=== PATIENT | female | born 1975 | race African-American/Black ===

== ENCOUNTER 2020-09-02 11:05 | Emergency (ER) | payer BC ==
[~2020-09-02] VITALS: Ht 175.3 cm; Wt 72.0 kg
[2020-09-02] MEDS ORDERED: IV NORMAL SALINE 1000ML BAG 1,000 ML IV ONE (11:30)
--- NOTE | 2020-09-02 11:53 | PHYS DOC ---
Past Medical History Past Medical History: No Pertinent History Past Surgical History: Cholecystectomy Smoking Status: Current Every Day Smoker Alcohol Use: Occasionally General Adult EDM: Chief Complaint: Palpitations HPI: HPI: Patient is a 45 year old female who presents emergency department via EMS with complaints of feeling like her heart is racing. Patient reports that she has chest pressure and a tingling sensation in her right arm. She also complains of nausea. The patient reports that she went out with some friends last night and drank 2 drinks with vodka in it. She reports that while she was out with friends a friend of hers offered her an unknown pill but she did not take it. Patient states that she only slept 2 hours last night so she drank a energy drink this morning. Her chest pressure and palpitations began after she drank the energy drink. Patient states she usually drinks 4-16 ounce cans of Monster every day. She denies any vision changes, headache, weakness, shortness of breath, edema, cough, vomiting, diarrhea, abdominal pain, or rash. She denies any dizziness, diaphoresis, or recent fever. Patient states that she thinks someone slipped something in her drink. Review of Systems: Review of Systems: Constitutional: Denies fever or chills; see HPI. [] Eyes: Denies change in visual acuity. [] HENT: Denies nasal congestion or sore throat. [] Respiratory: Denies cough or shortness of breath. [] Cardiovascular: See HPI GI: Denies abdominal pain, vomiting, bloody stools or diarrhea; see HPI. [] : Denies dysuria. [] Musculoskeletal: Denies back pain or joint pain. [] Integument: Denies rash. [] Neurologic: Denies headache or focal weakness Psychiatric: Denies depression or anxiety. [] Complete ROS is negative unless otherwise stated in the HPI. Heart Score: Risk Factors: Risk Factors: DM, Current or recent (<one month) smoker, HTN, HLP, family history of CAD, obesity. Risk Scores: Score 0 - 3: 2.5% MACE over next 6 weeks - Discharge Home Score 4 - 6: 20.3% MACE over next 6 weeks - Admit for Clinical Observation Score 7 - 10: 72.7% MACE over next 6 weeks - Early Invasive Strategies Current Medications: Current Medications Medications (Trade) Dose Ordered Sig/Aimee Start Time Stop Time Status Last Admin Dose Admin Sodium Chloride 1,000 ml @ 1,000 mls/hr 1X ONCE 09/02/20 11:30 09/02/20 12:29 Allergies: Allergies: Allergies Coded Allergies Type Severity Reaction Last Updated Verified No Known Drug Allergies 09/02/20 No Physical Exam: PE: Constitutional: Well developed, well nourished, no acute distress, non-toxic appearance, appears anxious [] HENT: Normocephalic, atraumatic, bilateral external ears normal, oropharynx moist, no oral exudates, nose normal. [] Eyes: PERRLA, EOMI, conjunctiva normal, no discharge, pupils are 4 with brisk response bilaterally. [] Neck: Normal range of motion, no tenderness, supple, no stridor. [] Cardiovascular:Heart rate regular rhythm, no murmur [] Lungs & Thorax: Bilateral breath sounds clear to auscultation, respirations even and unlabored, no retractions, no respiratory distress [] Abdomen: soft, no tenderness Skin: Warm, dry, no erythema, no rash. [] Back: No tenderness Extremities: No cyanosis, ROM intact, no edema. [] Neurologic: Alert and oriented X 3, normal motor function, normal sensory function, no focal deficits noted. [] Psychologic: Affect normal, judgement normal, mood anxious, fidgety Current Patient Data: Vital Signs: Vital Signs Date Time Temp Pulse Resp B/P (MAP) Pulse Ox O2 Delivery O2 Flow Rate FiO2 09/02/20 11:06 97.6 94 20 136/85 (102) 99 Room Air 97.6 EKG: EK-sinus rhythm, rate 87, no STEMI, read by Dr. Chacon [] Radiology/Procedures: Radiology/Procedures: PROCEDURE: CHEST AP ONLY CHEST AP ONLY 09/02/2020 11:24 AM INDICATION: Chest pain COMPARISON: None available TECHNIQUE: Portable frontal view of the chest is provided. FINDINGS: The cardiomediastinal silhouette is within normal limits. Lungs are clear. There are no significant pleural effusions. There is no pulmonary vascular congestion. No pneumothorax. No suspicious osseous abnormality. IMPRESSION: There is no acute cardiopulmonary process. [] Course & Med Decision Making: Course & Med Decision Making Pertinent Labs and Imaging studies reviewed. (See chart for details) 45-year-old female presents emergency department with suspicion of being slipped an unknown substance and palpitations. Work-up included labs CBC was unremarkable, CMP was unremarkable, PT/INR within normal limits, d-dimer was negative; UA revealed 11-20 red blood cells however the patient was on her menstrual cycle currently. Urine drug screen was positiv e for amphetamines. Chest x-ray was unremarkable. EKG revealed no acute findings. The patient's vital signs are stable throughout emergency department stay. The patient was given 1 L of normal saline and 4 mg of Zofran in the emergency department. She reported feeling better after these medications. I advised the patient that her palpitations are likely due to the amphetamine as found in her urine drug screen and the use of Monster energy drinks. I discouraged the patient from drinking monster energy drinks. I encouraged her to increase fluids, go home and rest, follow-up with her primary care doctor in 1 to 2 days, return to the ER symptoms worsen. Patient verbalized an understanding of home care, medications, follow-up, and return to ED instructions and was in agreement with the plan of care. [] [place] Disclaimer: Dragon Disclaimer: This electronic medical record was generated, in whole or in part, using a voice recognition dictation system. Departure Departure Impression: Primary Impression: Palpitations Additional Impression: Use of energy drinks Disposition: 01 DC HOME SELF CARE/HOMELESS Condition: STABLE Patient Instructions: Palpitations, [id number] Additional Instructions: Increase clear fluids and rest today, I recommend that you stop drinking monster energy drinks. Follow-up with your primary care doctor in 1 to 2 days, return to the ER if symptoms worsen. RODDY ECHAVARRIA [employer] Sep 02, 2020 11:53
[2020-09-02 11:54] LABS: BASO # 0.1 x10^3/uL (0.0-0.2); BASO % 1 % (0-3); EOS % 0 % (0-3); HEMATOCRIT 39.1 % (36.0-47.0); HEMOGLOBIN 13.1 g/dL (12.0-15.5); LYMPH % 21 % (24-48); MEAN CORPUSCULAR HEMOGLOBIN 31 pg (25-35); MEAN CORPUSCULAR HGB CONC 34 g/dL (31-37); MEAN CORPUSCULAR VOLUME 93 fL (79-100); MONO # 0.7 x10^3/uL (0.0-1.1); MONO % 8 % (0-9); NEUT # 6.8 x10^3/uL (1.8-7.7); NEUT % 70 % (31-73); PLATELET COUNT 290 x10^3/uL (140-400); RED BLOOD COUNT 4.18 x10^6/uL (3.50-5.40); RED CELL DISTRIBUTION WIDTH 13.8 % (11.5-14.5); WHITE BLOOD COUNT 9.6 x10^3/uL (4.0-11.0)
--- NOTE | 2020-09-02 11:59 | RAD ---
CHEST AP ONLY 09/02/2020 11:24 AM INDICATION: Chest pain COMPARISON: None available TECHNIQUE: Portable frontal view of the chest is provided. FINDINGS: The cardiomediastinal silhouette is within normal limits. Lungs are clear. There are no significant pleural effusions. There is no pulmonary vascular congestion. No pneumothorax. No suspicious osseous abnormality. IMPRESSION: There is no acute cardiopulmonary process. Electronically signed by: Esmer Martinez MD (09/02/2020 11:56 AM) TATIANA
[2020-09-02] MEDS ORDERED: ONDANSETRON PF 4 MG/2 ML VIAL. IV ONE (12:00)
[2020-09-02 12:11] LABS: PARTIAL THROMBOPLASTIN TIME 28 SEC (24-38); PROTHROMBIN TIME PATIENT 12.9 SEC (11.7-14.0)
[2020-09-02 12:12] LABS: CALCIUM 8.7 mg/dL (8.5-10.1); CREATININE 0.8 mg/dL (0.6-1.0); GFR 77.2; POTASSIUM 3.5 mmol/L (3.5-5.1)
[2020-09-02 12:17] LABS: D-DIMER < 0.27 ug/mlFEU (0.00-0.50)
[2020-09-02 12:23] LABS: ALBUMIN 4.3 g/dL (3.4-5.0); ALBUMIN/GLOBULIN RATIO 1.3 (1.0-1.7); MAGNESIUM 2.1 mg/dL (1.8-2.4); TOTAL BILIRUBIN 0.6 mg/dL (0.2-1.0); TOTAL PROTEIN 7.7 g/dL (6.4-8.2)
[2020-09-02 13:09] VITALS: BP 165/75
[2020-09-02 13:51] LABS: BILIRUBIN,URINE NEGATIVE (NEG); CLARITY,URINE CLEAR; COLOR,URINE YELLOW; NITRITE,URINE NEGATIVE (NEG); PH,URINE 6.5 (<5.0-8.0); PROTEIN,URINE NEGATIVE (NEG-TRACE); UROBILINOGEN,URINE 0.2 mg/dL (0.2 mg/dL)
[2020-09-02 13:58] LABS: BARBITURATES NEG (NEG); BENZODIAZEPINES NEG (NEG); CANNABINOIDS NEG (NEG); COCAINE NEG (NEG); METHADONE NEG (NEG); OPIATES NEG (NEG); PHENCYCLIDINE NEG (NEG)
[2020-09-02 14:01] LABS: BACTERIA,URINE 0 /HPF (0-FEW)
[2020-09-02 14:04] LABS: AMPHETAMINE/METHAMPHETAMINE POS (NEG)
== END 2020-09-02 14:47 | disposition home or self-care (01) ==
LOC: ER 11:05
DX: R00.2 Palpitations (principal); R07.89 Other chest pain; R11.0 Nausea; F17.200 Nicotine dependence, unspecified, uncomplicated; Z90.49 Acquired absence of other specified parts of digestive tract
CPT/HCPCS: 36415; 71045; 80053; 80307; 81001; 81025; 82553; 83690; 83735; 83880; 84484; 85025; 85379; 85610; 85730; 93005; 96361; 96374; 99285; G0480; J2405; J7030